=== PATIENT | male | born 1940 | race Caucasian/White ===

== ENCOUNTER → 2018-07-21 | Outpatient (CLI) | payer OTHER ==
[~2018-07-21] MED LIST: AREDS PO; CRAN1CAP10 PO; DOCU-116 PO; DOXY100T2 PO; FENO145T37 PO; FURO40TA5 PO; GLIM1TAB2 PO; JUICE PLUS GARDEN PO; JUICE PLUS VIT PO; LISI40TA4 PO; MEGA RED KRILL PO; PRESERVISION PO; PREVAGEN PO; TOPROL ER PO; WARF-57 PO; WARF7.5T49 PO
== END | disposition home or self-care (01) ==
LOC: SHCH 10:35
PROVIDERS: ATTEND Internal Medicine Cardiovascular Disease
DX: I34.0 Nonrheumatic mitral (valve) insufficiency (principal); I48.2 Chronic atrial fibrillation; I48.0 Paroxysmal atrial fibrillation
CPT/HCPCS: 93306

== ENCOUNTER → 2018-08-03 | Outpatient (CLI) | payer OTHER | END | disposition home or self-care (01) | LOC: SHCH 07:56 | PROVIDERS: ATTEND Internal Medicine Cardiovascular Disease | DX: I65.23 Occlusion and stenosis of bilateral carotid arteries (principal) | CPT/HCPCS: 93880 ==

== ENCOUNTER → 2020-11-04 | Outpatient (CLI) | payer OTHER ==
[~2020-11-04] MED LIST changes: +FENO145T26 PO; -FENO145T37 PO; +GLIM1TAB18 PO; -GLIM1TAB2 PO
== END | disposition home or self-care (01) ==
LOC: OIH 10:08
PROVIDERS: ATTEND Internal Medicine Cardiovascular Disease
DX: Z13.6 Encounter for screening for cardiovascular disorders (principal)
CPT/HCPCS: 75571

== ENCOUNTER 2020-11-13 12:57 | Inpatient (IN) | payer MEDICARE, OTHER ==
[~2020-11-13] VITALS: Ht 167.6 cm; Wt 106.4 kg
[~2020-11-13 12:57] MED LIST changes: -LISI40TA4 PO; +LISI40TA9 PO
[2020-11-13 13:27] LABS: BASOPHILS % (AUTO) 0.2 % (0.0-5.0); EOSINOPHILS % (AUTO) 0.1 % (0.0-8.0); HEMATOCRIT 38.1 % (42-54); LYMPHOCYTES % (AUTO) 5.9 % (21.0-51.0); MEAN CORPUSCULAR HEMOGLOBIN 29.7 pg (27.0-33.0); MEAN CORPUSCULAR VOLUME 92.7 fL (79-99); MONOCYTES % (AUTO) 10.7 % (3.0-13.0); NEUTROPHILS % (AUTO) 82.6 % (40.0-77.0); PLATELET COUNT (AUTO) 266 K/uL (130-400); RED BLOOD CELL COUNT(AUTO) 4.11 MIL/uL (4.50-6.20); RED CELL DISTRIBUTION WIDTH 13.1 % (11.0-15.5); WHITE BLOOD COUNT (AUTO) 20.3 K/uL (4.8-10.8)
[2020-11-13 13:37] LABS: INR 2.97 (0.85-1.15); PROTHROMBIN TIME 28.8 SEC (9.6-11.6)
[2020-11-13 13:39] LABS: PARTIAL THROMBOPLASTIN TIME 35.2 SEC (26.3-35.5)
[2020-11-13] MEDS ORDERED: CEFTRIAXONE 1G VIAL ONE (13:39)
[2020-11-13 13:41] LABS: CARBON DIOXIDE 23 mmol/L (21-32); CHLORIDE 98 mmol/L (101-111); CREATININE 1.9 mg/dL (0.5-1.5); GLOMERULAR FILTR. RATE CALC 36 mL/min (>60); GLUCOSE,RANDOM 282 mg/dL (70-105); POTASSIUM 5.3 mmol/L (3.5-5.1); SODIUM SERUM 135 mmol/L (136-145); UREA NITROGEN, BLOOD 46 mg/dL (7-18)
[2020-11-13 14:09] LABS: ALANINE AMINOTRANSFERASE 28 U/L (12-78); ALBUMIN 3.2 g/dL (3.5-5.0); ASPARTATE AMINOTRANSFERASE 20 U/L (10-37); BILIRUBIN,TOTAL 0.7 mg/dL (0.2-1.0); CREATINE KINASE, TOTAL 110 U/L (21-232); MYOGLOBIN 381 ng/mL (10-92); TOTAL PROTEIN, SERUM 7.6 g/dL (6.0-8.3); TROPONIN I < 0.04 ng/mL (0.00-0.06)
[2020-11-13 14:10] LABS: APPEARANCE,URINE SL CLOUDY (CLEAR); BILIRUBIN,URINE NEGATIVE (NEGATIVE); COLOR,URINE YELLOW (YELLOW); GLUCOSE, URINE (UA) NEGATIVE (NEGATIVE); KETONES,URINE NEGATIVE (NEGATIVE); LEUKOCYTE ESTERASE ,URINE LARGE (NEGATIVE); NITRATE,URINE NEGATIVE (NEGATIVE); OCCULT BLOOD,URINE SMALL (NEGATIVE); PH,URINE 6.5 (5.0-8.0); PROTEIN,URINE TRACE mg/dL (NEGATIVE); UROBILINOGEN,URINE 0.2 mg/dL (0.2-1.0)
[2020-11-13 14:28] LABS: BACTERIA,URINE Many /HPF (None Seen)
[2020-11-13 14:29] LABS: SQUAMOUS EPITHELIAL CELL,UR None Seen /HPF (0-2)
[2020-11-13] MEDS ORDERED: 0.9%NACL 1000ML 2,000 ML IV SCH (16:00)
[2020-11-13] MEDS ORDERED: ACETAMINOPHEN 325 MG TAB PO PRN (16:00)
[2020-11-13] MEDS ORDERED: ZOSYN 3.375GM+NS 50ML 50 ML IV ONE (16:25)
[2020-11-13] MEDS: ZOSYN 3.375GM+NS 50ML 50 ML IV SCH (21:00)
[2020-11-14 03:50] VITALS: BP 131/65
[2020-11-14] MEDS: 0.9%NACL 1000ML 1,000 ML IV SCH ×2 (06:02→12:22)
[2020-11-14] MEDS: ZOSYN 3.375GM+NS 50ML 50 ML IV SCH ×2 (06:02→12:22)
[2020-11-14 08:58] VITALS: BP 110/58
[2020-11-14 11:57] VITALS: BP 114/55
[2020-11-14 12:42] LABS: HEMATOCRIT 34.2 % (42-54); MEAN CORPUSCULAR HEMOGLOBIN 30.3 pg (27.0-33.0); MEAN CORPUSCULAR HGB CONC 32.5 g/dL (32.0-36.0); MEAN CORPUSCULAR VOLUME 93.4 fL (79-99); PLATELET COUNT (AUTO) 231 K/uL (130-400); RED BLOOD CELL COUNT(AUTO) 3.66 MIL/uL (4.50-6.20); RED CELL DISTRIBUTION WIDTH 13.3 % (11.0-15.5); WHITE BLOOD COUNT (AUTO) 23.4 K/uL (4.8-10.8)
[2020-11-14 14:00] LABS: BAND NEUTROPHILS % (MANUAL) 2 % (0-2); LYMPHOCYTES % (MANUAL) 2 % (22-44); MAN.DIFF COMMENT-IMPRESSION MANUAL DIFFERENTIAL; MONOCYTES % (MANUAL) 3 % (2-9); SEGMENTED NEUTROPHILS % 93 % (40-70)
[2020-11-14 14:02] LABS: PLATELET MORPHOLOGY COMMENT ADEQUATE
[2020-11-14] MEDS ORDERED: CHOL100040 PO (16:34)
[2020-11-14] MEDS ORDERED: WARF-57 PO (16:34)
[2020-11-14] MEDS ORDERED: METO-409 PO (16:34)
[2020-11-14] MEDS ORDERED: WARF2.5T85 PO (16:34)
[2020-11-14] MEDS ORDERED: ZINC50TA15 PO (16:34)
[2020-11-14] MEDS ORDERED: GLUC100019 PO (16:34)
[2020-11-14] MEDS: WARFARIN SODIUM 5 MG TAB PO SCH (17:00)
[2020-11-14] MEDS ORDERED: WARFARIN SODIUM 2.5 MG TAB PO SCH (17:00)
[2020-11-14 17:29] VITALS: BP 116/53
[2020-11-14] MEDS ORDERED: VANCOMYCIN PROTOCOL PER PHARMACY IV SCH (19:45)
[2020-11-14 19:53] VITALS: BP 97/48
[2020-11-14] MEDS ORDERED: VANCOMYCIN 1G 1.75 GM in 0.9% NACL 250ML 250 ML IV ONE (20:00)
[2020-11-14] MEDS ORDERED: COMPOUND IV REFRIGERATED 1 EACH IVSOLN MISC PRN (20:15)
[2020-11-14] MEDS ORDERED: NON-FORMULARY MEDICATION 1 EACH (Metoprolol Succinate 100 MG) PO SCH (21:00)
[2020-11-14] MEDS: LISINOPRIL 40 MG TABLET PO SCH (21:34)
[2020-11-14] MEDS: METOPROLOL SUCCINATE 50 MG TAB.SR.24H PO SCH (21:40)
[2020-11-14 23:56] VITALS: BP 94/51
[2020-11-15] MEDS: ZOSYN 3.375GM+NS 50ML 50 ML IV SCH ×2 (00:45→14:19)
[2020-11-15 04:00] VITALS: BP 97/51
[2020-11-15] MEDS: VANCOMYCIN 750MG + NS 250 ML IV SCH ×4 (06:18→20:08)
[2020-11-15 07:30] VITALS: BP 106/54
[2020-11-15] MEDS: METOPROLOL SUCCINATE 50 MG TAB.SR.24H PO SCH ×2 (09:00→21:00)
[2020-11-15] MEDS ORDERED: GLUCOSAMINE SULFATE 2000 MG PO SCH (09:00)
[2020-11-15] MEDS ORDERED: NON-FORMULARY MEDICATION 1 EACH (Cholecalciferol (Vitamin D3) (Vitamin D3) 25 MCG) PO SCH (09:00)
[2020-11-15] MEDS: GLUCOSAMINE SULFATE 2000 MG PO SCH (09:00)
[2020-11-15] MEDS ORDERED: ZINC GLUCONATE 50 MG PO SCH (09:00)
[2020-11-15] MEDS: Cholecalciferol (Vitamin D3) (Vitamin D3) 25 MCG PO SCH (09:00)
[2020-11-15] MEDS: FUROSEMIDE 40 MG TABLET PO SCH (10:16)
[2020-11-15 11:00] VITALS: BP 99/51
[2020-11-15 16:00] VITALS: BP 101/59
[2020-11-15] MEDS ORDERED: WARFARIN SODIUM 5 MG TAB PO SCH (16:00)
[2020-11-15 20:04] VITALS: BP 98/52
[2020-11-15] MEDS: WARFARIN SODIUM 5 MG TAB PO SCH (20:16)
[2020-11-15] MEDS: LISINOPRIL 40 MG TABLET PO SCH (21:00)
[2020-11-16 00:04] VITALS: BP 113/57
[2020-11-16] MEDS: 0.9%NACL 1000ML 1,000 ML IV SCH ×4 (00:52→17:12)
[2020-11-16] MEDS: ZOSYN 3.375GM+NS 50ML 50 ML IV SCH ×2 (00:52→16:45)
[2020-11-16 04:04] VITALS: BP 117/51
[2020-11-16 08:00] VITALS: BP 120/63
[2020-11-16] MEDS: Cholecalciferol (Vitamin D3) (Vitamin D3) 25 MCG PO SCH (09:00)
[2020-11-16] MEDS: GLUCOSAMINE SULFATE 2000 MG PO SCH (09:00)
[2020-11-16] MEDS: VANCOMYCIN 750MG + NS 250 ML IV SCH ×4 (09:01→16:48)
[2020-11-16 11:00] VITALS: BP 129/50
[2020-11-16 16:00] VITALS: BP 136/65
[2020-11-16] MEDS: METOPROLOL SUCCINATE 50 MG TAB.SR.24H PO SCH ×2 (16:35→22:11)
[2020-11-16] MEDS: FUROSEMIDE 40 MG TABLET PO SCH (16:35)
[2020-11-16] MEDS: WARFARIN SODIUM 5 MG TAB PO SCH (16:46)
[2020-11-16 20:04] VITALS: BP 127/72
[2020-11-16] MEDS: LISINOPRIL 40 MG TABLET PO SCH (22:11)
[2020-11-17 00:04] VITALS: BP 127/61
[2020-11-17] MEDS: ZOSYN 3.375GM+NS 50ML 50 ML IV SCH (00:58)
[2020-11-17 04:08] VITALS: BP 117/60
[2020-11-17] MEDS: 0.9%NACL 1000ML 1,000 ML IV SCH ×4 (05:26→21:25)
[2020-11-17 08:27] VITALS: BP 121/69
[2020-11-17] MEDS: GLUCOSAMINE SULFATE 2000 MG PO SCH (09:00)
[2020-11-17] MEDS: Cholecalciferol (Vitamin D3) (Vitamin D3) 25 MCG PO SCH (09:00)
[2020-11-17] MEDS: FUROSEMIDE 40 MG TABLET PO SCH (11:17)
[2020-11-17] MEDS: METOPROLOL SUCCINATE 50 MG TAB.SR.24H PO SCH ×2 (11:18→21:25)
[2020-11-17 11:31] VITALS: BP 119/63
[2020-11-17] MEDS ORDERED: LEVOFLOXACIN 500 MG TABLET PO SCH (15:00)
[2020-11-17 16:00] VITALS: BP 120/62
[2020-11-17] MEDS ORDERED: LEVOFLOXACIN 500 MG TABLET PO ONE (16:00)
[2020-11-17] MEDS: WARFARIN SODIUM 5 MG TAB PO SCH (16:02)
[2020-11-17 20:04] VITALS: BP 120/61
[2020-11-17] MEDS: LISINOPRIL 40 MG TABLET PO SCH (21:25)
[2020-11-18 00:04] VITALS: BP 117/61
[2020-11-18] MEDS: 0.9%NACL 1000ML 1,000 ML IV SCH ×2 (04:06→14:26)
[2020-11-18 04:08] VITALS: BP 124/63
[2020-11-18 08:04] VITALS: BP 113/63
[2020-11-18] MEDS: METOPROLOL SUCCINATE 50 MG TAB.SR.24H PO SCH ×2 (09:00→20:52)
[2020-11-18] MEDS: FUROSEMIDE 40 MG TABLET PO SCH (09:00)
[2020-11-18] MEDS: GLUCOSAMINE SULFATE 2000 MG PO SCH (09:00)
[2020-11-18] MEDS: Cholecalciferol (Vitamin D3) (Vitamin D3) 25 MCG PO SCH (09:00)
[2020-11-18 12:54] LABS: HEMATOCRIT 26.8 % (42-54); MEAN CORPUSCULAR HEMOGLOBIN 30.2 pg (27.0-33.0); MEAN CORPUSCULAR HGB CONC 32.8 g/dL (32.0-36.0); MEAN CORPUSCULAR VOLUME 92.1 fL (79-99); PLATELET COUNT (AUTO) 182 K/uL (130-400); RED BLOOD CELL COUNT(AUTO) 2.91 MIL/uL (4.50-6.20); RED CELL DISTRIBUTION WIDTH 13.1 % (11.0-15.5); WHITE BLOOD COUNT (AUTO) 7.8 K/uL (4.8-10.8)
[2020-11-18 13:18] LABS: EOSINOPHILS % (MANUAL) 1 % (1-6); LYMPHOCYTES % (MANUAL) 6 % (22-44); MAN.DIFF COMMENT-IMPRESSION MANUAL DIFFERENTIAL; MONOCYTES % (MANUAL) 6 % (2-9); SEGMENTED NEUTROPHILS % 87 % (40-70)
[2020-11-18 13:19] LABS: PLATELET MORPHOLOGY COMMENT ADEQUATE
[2020-11-18 13:32] VITALS: BP 115/61
[2020-11-18] MEDS ORDERED: LEVOFLOXACIN 500 MG TABLET PO SCH (15:00)
[2020-11-18] MEDS: WARFARIN SODIUM 5 MG TAB PO SCH (16:00)
[2020-11-18 16:25] VITALS: BP 115/59
[2020-11-18 20:00] VITALS: BP 123/55
[2020-11-18] MEDS: LISINOPRIL 40 MG TABLET PO SCH (20:52)
[2020-11-19] VITALS: BP 116/59
[2020-11-19] MEDS: 0.9%NACL 1000ML 1,000 ML IV SCH (02:12)
[2020-11-19 04:00] VITALS: BP 126/63
[2020-11-19 08:22] VITALS: BP 115/68
[2020-11-19] MEDS: GLUCOSAMINE SULFATE 2000 MG PO SCH (09:00)
[2020-11-19] MEDS: Cholecalciferol (Vitamin D3) (Vitamin D3) 25 MCG PO SCH (09:00)
[2020-11-19] MEDS: FUROSEMIDE 40 MG TABLET PO SCH (10:09)
[2020-11-19] MEDS: METOPROLOL SUCCINATE 50 MG TAB.SR.24H PO SCH (10:09)
[2020-11-19 11:55] VITALS: BP 129/64
== END 2020-11-19 15:20 | disposition home or self-care (01) | DRG 872 ==
LOC: EDH 12:57 → EDHIP 15:30 → 3BH 19:30 → EDHIP 23:19 → 3BH 11-14 02:15
PROVIDERS: ADMIT Internal Medicine Hematology & Oncology; ATTEND Internal Medicine Hematology & Oncology
DX: A41.9 Sepsis, unspecified organism (principal); N39.0 Urinary tract infection, site not specified; C67.9 Malignant neoplasm of bladder, unspecified; I25.10 Atherosclerotic heart disease of native coronary artery without angina pectoris; I11.9 Hypertensive heart disease without heart failure; Z20.822 Contact with and (suspected) exposure to COVID-19; R53.81 Other malaise; Z92.3 Personal history of irradiation; Z92.21 Personal history of antineoplastic chemotherapy; Z82.49 Family history of ischemic heart disease and other diseases of the circulatory system
CPT/HCPCS: 36415; 70450; 71045; 72125; 80053; 80202; 81001; 82550; 83605; 83874; 84145; 84484; 85025; 85610; 85730; 86140; 86900; 86901; 87040; 87077; 87088; 87186; 87426; 93005; 97039; G0378; J0696; J2543; J3370; J7030; J7050; U0003

== ENCOUNTER → 2020-11-27 | Outpatient (CLI) | payer MEDICARE, OTHER ==
[~2020-11-27] MED LIST changes: -AREDS PO; +CHOL100040 PO; -CRAN1CAP10 PO; -DOCU-116 PO; -DOXY100T2 PO; -FENO145T26 PO; +GLUC100019 PO; -JUICE PLUS GARDEN PO; -JUICE PLUS VIT PO; +LISI40TA4 PO; -LISI40TA9 PO; -MEGA RED KRILL PO; +METO-409 PO; -PRESERVISION PO; -PREVAGEN PO; -TOPROL ER PO; +WARF2.5T85 PO; -WARF7.5T49 PO; +ZINC50TA15 PO
== END | disposition home or self-care (01) ==
LOC: SHCH 07:42
PROVIDERS: ATTEND Internal Medicine Cardiovascular Disease
DX: I65.23 Occlusion and stenosis of bilateral carotid arteries (principal); I10 Essential (primary) hypertension
CPT/HCPCS: 93306; 93356; 93880

== ENCOUNTER 2021-12-29 08:48 | Day surgery (SDC) | payer MEDICARE ==
[2021-12-25 10:14] LABS: BASOPHILS % (AUTO) 1.2 % (0.0-5.0); EOSINOPHILS % (AUTO) 3.8 % (0.0-8.0); HEMATOCRIT 42.2 % (42-54); LYMPHOCYTES % (AUTO) 19.6 % (21.0-51.0); MEAN CORPUSCULAR HEMOGLOBIN 29.9 pg (27.0-33.0); MEAN CORPUSCULAR HGB CONC 32.7 g/dL (32.0-36.0); MEAN CORPUSCULAR VOLUME 91.3 fL (79-99); MONOCYTES % (AUTO) 10.9 % (3.0-13.0); NEUTROPHILS % (AUTO) 64.3 % (40.0-77.0); PLATELET COUNT (AUTO) 226 K/uL (130-400); RED BLOOD CELL COUNT(AUTO) 4.62 MIL/uL (4.50-6.20); RED CELL DISTRIBUTION WIDTH 12.8 % (11.0-15.5); WHITE BLOOD COUNT (AUTO) 5.9 K/uL (4.8-10.8)
[2021-12-25 10:15] LABS: APPEARANCE,URINE CLEAR (CLEAR); BILIRUBIN,URINE NEGATIVE (NEGATIVE); COLOR,URINE YELLOW (YELLOW); GLUCOSE, URINE (UA) 250 mg/dL (NEGATIVE); KETONES,URINE NEGATIVE (NEGATIVE); LEUKOCYTE ESTERASE ,URINE NEGATIVE (NEGATIVE); NITRATE,URINE NEGATIVE (NEGATIVE); OCCULT BLOOD,URINE NEGATIVE (NEGATIVE); PROTEIN,URINE NEGATIVE (NEGATIVE); UROBILINOGEN,URINE 0.2 mg/dL (0.2-1.0)
[2021-12-25 10:23] LABS: CREATININE 1.5 mg/dL (0.5-1.5); POTASSIUM 4.4 mmol/L (3.5-5.1)
[2021-12-25 10:27] LABS: BACTERIA,URINE Rare /HPF (None Seen); RBC,URINE 0-1 /HPF (0-1); SQUAMOUS EPITHELIAL CELL,UR Rare /HPF (0-2)
[2021-12-25 10:35] LABS: INR 2.33 (0.85-1.15); PROTHROMBIN TIME 23.5 SEC (9.6-11.6)
[2021-12-25 10:37] LABS: PARTIAL THROMBOPLASTIN TIME 45.2 SEC (26.3-35.5)
[~2021-12-29] VITALS: Ht 190.5 cm; Wt 99.0 kg
[2021-12-29] VITALS (9 sets, daily range): BP systolic 118–134; BP diastolic 67–77
[~2021-12-29 08:48] MED LIST changes: +0.9%NACL 1000ML 1,000 ML IV SCH; +ASCO100031 PO; -CHOL100040 PO; +CHOL500051 PO; -GLIM1TAB18 PO; -GLUC100019 PO; -LISI40TA4 PO; +METF-444 PO; +TEMA30CA PO; -WARF2.5T85 PO; -ZINC50TA15 PO; +[UNRECOGNIZED DRUG - OTHER] PO
[2021-12-29 09:28] LABS: INR 1.17 (0.85-1.15); PROTHROMBIN TIME 12.6 SEC (9.6-11.6)
[2021-12-29 09:30] LABS: PARTIAL THROMBOPLASTIN TIME 31.6 SEC (26.3-35.5)
[2021-12-29] MEDS ORDERED: NICARDIPINE 25MG INJ IV ONE (09:55)
[2021-12-29] MEDS ORDERED: MIDAZOLAM HCL 1 MG/ML 2ML VIAL ONE (09:55)
[2021-12-29] MEDS ORDERED: NITROGLYCERIN 50MG VIAL ONE (09:55)
[2021-12-29] MEDS ORDERED: IOHEXOL 350 MG/ML 100ML INFUS..BTL IV ONE (09:55)
[2021-12-29] MEDS ORDERED: MEPERIDINE-PF 25 MG/ML SYG ONE (09:55)
[2021-12-29] MEDS ORDERED: LIDOCAINE HCL 400MG/20ML VIAL ONE (09:55)
[2021-12-29] MEDS ORDERED: HEPARIN 10,000 UNIT/10ML (1,000 UNIT/ML) VIAL ONE (09:55)
[2021-12-29] MEDS ORDERED: SODIUM BICARB 50MEQ 50ML VIAL 50 ML ONE (09:58)
[2021-12-29] MEDS ORDERED: IOHEXOL-350 50ML VIAL IV ONE (10:42)
[2021-12-29] MEDS ORDERED: DEXTROSE 50%-WATER 50 ML DISP.SYRIN IV PRN (11:00)
[2021-12-29] MEDS ORDERED: 0.9%NACL 1000ML 1,000 ML IV SCH (11:00)
[2021-12-29] MEDS ORDERED: INSULIN HUMULIN R 100 UNIT/ML 3ML SQ SCH (11:30)
== END 2021-12-29 15:10 | disposition home or self-care (01) ==
LOC: DAH 08:48
PROVIDERS: ATTEND Internal Medicine Cardiovascular Disease
DX: I25.10 Atherosclerotic heart disease of native coronary artery without angina pectoris (principal); E11.9 Type 2 diabetes mellitus without complications; I51.9 Heart disease, unspecified; Z85.51 Personal history of malignant neoplasm of bladder; I48.91 Unspecified atrial fibrillation; Z95.810 Presence of automatic (implantable) cardiac defibrillator; Z88.1 Allergy status to other antibiotic agents; Z79.01 Long term (current) use of anticoagulants; Z79.899 Other long term (current) drug therapy
CPT/HCPCS: 36415 ×2; 71045; 80048; 81001; 82948 ×2; 85025; 85610 ×2; 85730 ×2; 93005; 93458; A4215; A4216; A4221; A4222; A4223 ×3; A4606; A4663; C1760; C1894; J1644; J2175; J2250; J3490 ×4; J7030; Q9965; Q9967 ×2; 96360; 96361; 99156; 99157

== ENCOUNTER 2022-02-04 11:23 | Observation (INO) | payer MEDICARE ==
[~2022-02-04] VITALS: Ht 193 cm; Wt 98.9 kg
[~2022-02-04 11:23] MED LIST changes: -0.9%NACL 1000ML 1,000 ML IV SCH
[2022-02-04 12:00] LABS: BASOPHILS % (AUTO) 0.9 % (0.0-5.0); EOSINOPHILS % (AUTO) 4.3 % (0.0-8.0); HEMATOCRIT 38.8 % (42-54); LYMPHOCYTES % (AUTO) 23.9 % (21.0-51.0); MEAN CORPUSCULAR HEMOGLOBIN 29.2 pg (27.0-33.0); MEAN CORPUSCULAR HGB CONC 32.7 g/dL (32.0-36.0); MEAN CORPUSCULAR VOLUME 89.2 fL (79-99); MONOCYTES % (AUTO) 11.3 % (3.0-13.0); NEUTROPHILS % (AUTO) 59.4 % (40.0-77.0); PLATELET COUNT (AUTO) 186 K/uL (130-400); RED BLOOD CELL COUNT(AUTO) 4.35 MIL/uL (4.50-6.20); RED CELL DISTRIBUTION WIDTH 13.4 % (11.0-15.5); WHITE BLOOD COUNT (AUTO) 5.3 K/uL (4.8-10.8)
[2022-02-04 12:09] LABS: CREATININE 1.3 mg/dL (0.5-1.5); POTASSIUM 3.8 mmol/L (3.5-5.1)
[2022-02-04 12:14] LABS: ALBUMIN 3.4 g/dL (3.5-5.0); BILIRUBIN,TOTAL 0.3 mg/dL (0.2-1.0); TOTAL PROTEIN, SERUM 6.8 g/dL (6.0-8.3)
[2022-02-04] MEDS ORDERED: 0.9%NACL 1000ML 1,000 ML IV ONE (12:30)
[2022-02-04] MEDS ORDERED: IOHEXOL 350 MG/ML 100ML INFUS..BTL IV ONE (12:35)
[2022-02-04 13:43] LABS: APPEARANCE,URINE Clear (CLEAR); BILIRUBIN,URINE Negative (NEGATIVE); COLOR,URINE Yellow (YELLOW); GLUCOSE, URINE (UA) Negative (NEGATIVE); KETONES,URINE Negative (NEGATIVE); LEUKOCYTE ESTERASE ,URINE Negative (NEGATIVE); NITRATE,URINE Negative (NEGATIVE); OCCULT BLOOD,URINE Negative (NEGATIVE); PH,URINE 6.5 (5.0-8.0); PROTEIN,URINE Negative (NEGATIVE); UROBILINOGEN,URINE 0.2 mg/dL (0.2-1.0)
[2022-02-04] MEDS ORDERED: 0.9%NACL 1000ML 1,000 ML IV SCH (15:00)
[2022-02-04 15:28] LABS: INR 2.32 (0.85-1.15); PROTHROMBIN TIME 23.4 SEC (9.6-11.6)
[2022-02-04] MEDS: ASPIRIN 81 MG EC TAB PO SCH (15:28)
[2022-02-04 15:30] LABS: PARTIAL THROMBOPLASTIN TIME 44.5 SEC (26.3-35.5)
[2022-02-04] MEDS ORDERED: WARF2.5T85 PO (16:39)
[2022-02-04 18:29] VITALS: BP 125/66
[2022-02-04] MEDS ORDERED: DEXTROSE 50%-WATER 50 ML DISP.SYRIN IV PRN (22:30)
[2022-02-04] MEDS ORDERED: WARFARIN SODIUM 2.5 MG TAB PO SCH (22:30)
[2022-02-04] MEDS ORDERED: GLUCAGON 1MG KIT 1 MG ML IM PRN (22:30)
[2022-02-04] MEDS ORDERED: PHARMACY COMMUNICATION MISC SCH (23:00)
[2022-02-04 23:10] VITALS: BP 127/77
[2022-02-05 04:19] VITALS: BP 122/66
[2022-02-05] MEDS: INSULIN HUMULIN R 100 UNIT/ML 3ML SQ SCH ×2 (06:09→12:56)
[2022-02-05 07:28] VITALS: BP 138/77
[2022-02-05] MEDS: ASPIRIN 81 MG EC TAB PO SCH (08:46)
[2022-02-05] MEDS ORDERED: FUROSEMIDE 40 MG TABLET PO SCH (09:00)
[2022-02-05] MEDS ORDERED: WARFARIN SODIUM 5 MG TAB PO SCH (09:00)
[2022-02-05] MEDS ORDERED: METFORMIN HCL 500 MG TABLET PO SCH (09:00)
[2022-02-05 11:40] VITALS: BP_SYST 127; BP_SYST 147; BP_DIAS 70; BP_DIAS 74
[2022-02-05] MEDS ORDERED: PHARMACY COMMUNICATION MISC SCH (13:00)
[2022-02-05] MEDS ORDERED: METOPROLOL SUCCINATE 50 MG TAB.SR.24H PO SCH (21:00)
[2022-02-05] MEDS ORDERED: TEMAZEPAM 30 MG CAP PO SCH (21:00)
== END 2022-02-05 14:38 | disposition home or self-care (01) ==
LOC: EDH 11:23 → EDHIP 14:37 → 3BH 18:09
PROVIDERS: ADMIT Internal Medicine Hematology & Oncology; ATTEND Internal Medicine Hematology & Oncology
DX: G45.9 Transient cerebral ischemic attack, unspecified (principal); I63.9 Cerebral infarction, unspecified; I25.10 Atherosclerotic heart disease of native coronary artery without angina pectoris; Z95.0 Presence of cardiac pacemaker; E11.9 Type 2 diabetes mellitus without complications; Z85.51 Personal history of malignant neoplasm of bladder; Z79.01 Long term (current) use of anticoagulants; Z79.899 Other long term (current) drug therapy
CPT/HCPCS: 36415; 70450; 70496; 70498; 80053; 81003; 82140; 82948 ×2; 84484; 85025; 85610; 85730; 93005; 96360; 99291; G0378 ×24; J1815; J7030; Q9967

== ENCOUNTER → 2023-09-01 | Outpatient (CLI) | payer MEDICARE ==
[~2023-09-01] MED LIST changes: -ASCO100031 PO; -CHOL500051 PO; +WARF2.5T85 PO; -[UNRECOGNIZED DRUG - OTHER] PO
[2023-09-01 17:00] LABS: ALBUMIN 3.5 g/dL (3.5-5.0); BILIRUBIN,TOTAL 0.5 mg/dL (0.2-1.0); MAGNESIUM 1.6 mg/dL (1.80-2.40); POTASSIUM 4.3 mmol/L (3.5-5.1); TOTAL PROTEIN, SERUM 7.4 g/dL (6.0-8.3)
== END | disposition home or self-care (01) ==
LOC: LAB 14:48
PROVIDERS: ATTEND Internal Medicine Cardiovascular Disease
DX: I48.0 Paroxysmal atrial fibrillation (principal)
CPT/HCPCS: 36415; 80053; 83735; 83880

== ENCOUNTER 2025-05-30 11:26 | Observation (INO) | payer MEDICARE ==
[~2025-05-30] VITALS: Ht 193 cm; Wt 85.5 kg
--- NOTE | 2025-05-30 11:52 | ERN ---
General Chief Complaint: Hypotension Stated Complaint: HYPOTENSION Time Seen by MD: 11:27 History of Present Illness Initial Comments Mr. Brooks is an 85-year-old male patient, brought in by EMS with hypotension from [facility]. Patient had a scheduled appointment for dizziness/near syncope and medication review. He was found to have a blood pressure consistently in the low 80s systolic. Patient has a past medical history of hypertension, AFib on warfarin, biventricular AICD, CAD, anemia, bladder cancer. Patient has been having multiple episodes of syncope over the last 3 months. His visit to transplant surgeon in March for these symptoms was advised to decrease metoprolol dose to 50 mg BID a day but the patient did not make the adjustment had multiple episodes of passing out. Pt suffered multiple falls and the most recent one was a week ago. He has bruising above the left eye and on the nose. Patient denies headache, changes in vision, fevers, cough, congestion, or chest pain. He reports multiple recent episodes of dizziness. He had a fall a few days ago. Patient is pending generator exchange for his pacemaker. Allergies: Coded Allergies: niacin (Verified Allergy, Unknown, ITCHING, 11/09/16) Home Meds Reported Medications Sacubitril/Valsartan (Entresto 24 mg-26 mg Tablet) 24 Mg-26 Mg Tablet, 1 TAB PO BID for 30 Days, #60 TAB 0 Refills 05/30/25 Vitamin B Complex (B Complex) 1 Cap Capsule, 1 CAP PO DAILY for 30 Days, #30 CAP 0 Refills 05/30/25 Metformin HCl (Metformin HCl) 1,000 Mg Tablet, 1 TAB PO BID for 30 Days, #60 TAB 0 Refills 05/30/25 Warfarin Sodium (Warfarin Sodium) 2.5 Mg Tablet, 2.5 MG PO AD, TAB 02/04/22 Metoprolol Succinate (Metoprolol Succinate) 100 Mg Tab.er.24h, 100 MG PO HS, TAB 12/26/21 Warfarin Sodium (Warfarin Sodium) 5 Mg Tablet, 5 MG PO DAILY, TAB 12/26/21 Temazepam (Temazepam) 30 Mg Capsule, 30 MG PO HS, CAP 12/26/21 Furosemide (Furosemide) 40 Mg Tablet, 40 MG PO DAILY, TAB 11/07/14 Discontinued Reported Medications Metformin HCl (Metformin HCl) 500 Mg Tablet, 500 MG PO BID, TAB 12/26/21 Past Medical History Past Medical History: A-Fib, Anemia, CAD, Cancer, Diabetes-Type II, Hypertension Medical History Other: BLADDER CA DEFIB PACEMAKER Past Surgical History: Pacer/AICD Social History Social History: Other ROS Dictation CONSTITUTIONAL: No chills, no fever, no weakness, no diaphoresis, no malaise. HEAD/FACE: A bruise above the left eyebrow and bridge of the nose. EENT: No eye pain, no blurred vision, no tearing, no double vision, no ear pain, no ear discharge, no nose pain, no nasal congestion, no throat pain, no throat swelling, no mouth pain. RESPIRATORY: No cough, no SOB, no orthopnea, no PND, no wheezing. CARDIOVASCULAR: No chest pain, no edema, no palpitations, syncope. GASTROINTESTINAL/ABDOMINAL: No abdominal pain, no constipation, no diarrhea, no nausea, no vomiting. GENITOURINARY: No abnormal discharge, no dysuria, no frequent urination, no hematuria. No complaints of pain in the genitals. MUSCULOSKELETAL: No back pain, no gout, no joint pain, no joint swelling, no muscle pain, no muscle stiffness, no neck pain. INTEGUMENTARY: No change in color, no change in hair/nails, no dryness, no lesion, no lumps, no rash. NEUROLOGICAL/PSYCH: No anxiety, not depressed, no emotional problem, no headache, no numbness, no pre-existing deficit, no history of seizures, no tremors, no weakness. HEMATOLOGIC/LYMPHATIC: Anemic, no history of blood clots, no apparent bleeding, no bruising, glands not swollen. All Systems Negative, Except as Noted. Physical Exam Physical Exam Dictation VITAL SIGNS: Reviewed. GENERAL APPEARANCE: Alert, oriented x3 HEAD AND FACE: Non-traumatic. EYES: PERRL, pink conjunctivas, eyelid no trauma, anterior chamber clear. EARS: Pinnas intact and no signs of trauma or erythema. Ear canals clear and no discharge. TMs no erythema. NOSE: No discharge, no bleeding. OROPHARYNX: Mouth normal, teeth no caries, tongue pink. Pharynx clear, no erythema. Tonsils no exudates, no abscesses noted. Mucous membrane moist. NECK: Supple, non-tender, no thyromegaly, no masses, no JVD, no bruits. BREAST: Deferred. CHEST: No tenderness, no crepitus, no paradoxical movement, no retractions. LUNGS: Clear, well-ventilated, symmetric, no rales, no wheezing, no rhonchi, no stridor, good breath sounds bilaterally. HEART: Regular rate, regular rhythm, no murmur, no gallops. VASCULAR: No peripheral edema. ABDOMEN: Soft, positive bowel sounds, nondistended, no guarding, nontender, no rebound, no masses no hepatomegaly, no splenomegaly, no Newman's sign, no hernias. RECTAL: Deferred. GENITAL: Deferred. NEUROLOGICAL: Normal speech, gross motor function intact, gross sensory function intact. MUSCULOSKELETAL: Neck nontender, full range of motion, back nontender, full range of motion. EXTREMITIES: Nontender, full range of motion. SKIN: Color pink, dry, no turgor, no rash, no lacerations, bruise above the left eye and on nose, no contusions. LYMPHATICS: Deferred. Results Laboratory and Microbiology Lab and Micro Result Laboratory Tests Test 05/30/25 11:54 White Blood Count 7.7 K/uL (4.8-10.8) Red Blood Count 3.18 MIL/uL (4.50-6.20) L Hemoglobin 9.3 g/dL (14.0-18.0) L Hematocrit 28.5 % (42-54) L Mean Corpuscular Volume 89.6 fL (79-99) Mean Corpuscular Hemoglobin 29.2 pg (27.0-33.0) Mean Corpuscular Hemoglobin Concent 32.6 g/dL (32.0-36.0) Red Cell Distribution Width 15.0 % (11.0-15.5) Platelet Count 291 K/uL (130-400) Mean Platelet Volume 9.8 fL (7.5-10.5) Immature Granulocyte % (Auto) 0.3 % (0-1) Neutrophils (%) (Auto) 66.0 % (40.0-77.0) Lymphocytes (%) (Auto) 19.4 % (21.0-51.0) L Monocytes (%) (Auto) 12.1 % (3.0-13.0) Eosinophils (%) (Auto) 1.6 % (0.0-8.0) Basophils (%) (Auto) 0.6 % (0.0-5.0) Neutrophils # (Auto) 5.1 K/uL (1.8-7.7) Lymphocytes # (Auto) 1.5 K/uL (1.0-4.8) Monocytes # (Auto) 0.9 K/uL (0.1-1.0) Eosinophils # (Auto) 0.12 K/uL (0.00-0.70) Basophils # (Auto) 0.05 K/uL (0.00-0.20) Absolute Immature Granulocyte (auto 0.02 K/uL (0-1) Nucleated Red Blood Cells 0.0 % (0.0-0.19) Sodium Level 137 mmol/L (136-145) Potassium Level 5.4 mmol/L (3.5-5.1) H Chloride Level 104 mmol/L (101-111) Carbon Dioxide Level 23 mmol/L (21-32) Blood Urea Nitrogen 71 mg/dL (7-18) H Creatinine 1.9 mg/dL (0.5-1.3) H Glomerular Filtration Rate Calc 34 mL/min (>90) Random Glucose 107 mg/dL (70-105) H Lactic Acid Level 3.0 mmol/L (0.8-2.5) H Total Calcium 8.7 mg/dL (8.5-10.1) Total Creatine Kinase 41 U/L (21-232) # Troponin I High Sensitivity 10 ng/L (4-75) MDM Chief complaint: Patient had hypotension on admission with frequent syncopal episodes in the past months with a fall one week ago. Pt was advised to reduce Metoprolol dosage to 50mg BID however he has been taking 100 mg BID. Past medical history: Afib with AICD, HTN, DM, CHF, CKD, Bladder cancer, and anemia. Vitals: Patient hypotensive on admission, 80s/40s. Subsequently improved to 109/70 with fluids. Review of systems: Mostly unremarkable except for her bruises about the left eye us from fall a week ago. Physical Exam: Mostly unremarkable Labs: Labs are consistent with anemia hemoglobin 9.3, BUN 71, creatinine 1.9, lactic acid 3, hyperkalemia 5.4. Imaging: CT brain showed no intracranial hemorrhages. Stable chronic ischemic changes. Chest X-ray is normal. Differential diagnosis: Transient hypotension, dehydration, anemia, lactic acidosis. Assessment and Plan: Patient was hypotensive POA, given 2 litres of IV fluids, pressures climbed up to 109/70mmhg. Patient has taken Metoprolol 100 mg this morning. Pt will be admitted for observation and management of hypotension causing recurrent falls, lactic acidosis, and dehydration. ATTENDING MDM CC: dizziness, near syncope, orthostasis Historian: Patient Comorbidities: AFib, anemia, CAD, history of bladder cancer, diabetes, hypertension Limitations by social determinants of health: None Differential diagnosis: Transient hypotension, medication side effect, dehydration, sepsis, obstructive pathology, distributed pathology EKG (independently ordered and interpreted by me): Atrial fibrillation, rate of 84, ventricular paced rhythm, no STEMI. Vital signs: Initially blood pressure 81/41, other vital signs stable. After fluid resuscitation, blood pressure improved to 106/57. Oxygen saturation stable. Labs (independently ordered and interpreted by me): Hemoglobin 9.3, no leuko cytosis, no shift, no bands. Chemistry shows potassium 5.4 otherwise stable electrolytes. Creatinine 1.9 BUN is 71, appears to be an LES on CKD. Lactic acid 3.0. Troponin stable. Repeat lactic acid 1.2, improving. Urinalysis does show nitrites leuk esterase. Treatment in ED: 2 L normal saline, 1 g of Rocephin. Patient does have lactic acidosis hypotension and possible UTI, treated a sepsis. Received 2 L of fluids and IV antibiotics. On sepsis focused re- evaluation after the fluid resuscitation, patient has stable perfusion and stable vital signs. Symptoms may also be due to dehydration since she does have a mild LES with the an elevated BUN to creatinine ratio. We will admit for further treatment and observation. Blood cultures drawn in the ER. Consultation: Dr. Valverde for admission. ED Course Orders Procedure Category Date Status Time Cbc With Differential LAB 05/30/25 Complete 11:47 Urinalysis Profile LAB 05/30/25 Complete 11:47 0.9%Nacl 1000ml (Ns PHA 05/30/25 Complete 1000ml) 12:00 Creatine Kinase, Total LAB 05/30/25 Complete 11:47 Troponin I High LAB 05/30/25 Complete Sensitivity 11:47 Lactic Acid LAB 05/30/25 Complete 11:47 Basic Metabolic Panel LAB 05/30/25 Complete 11:47 12 Lead Ekg Tracing- EKG 05/30/25 Complete Technical 11:47 Ct Head/Brain W/O CT 05/30/25 Resulted Contrast 11:47 Chest 1vw RAD 05/30/25 Resulted 11:47 Blood Cult LULI 05/30/25 In Process 11:52 0.9%Nacl 1000ml (Ns PHA 05/30/25 Complete 1000ml) 12:30 Ceftriaxone 1g Vial PHA 05/30/25 Complete (Rocephine 1g Inj) 14:00 Current Medications Medications (Trade) Dose Ordered Sig/Celina Route PRN Reason Start Time Stop Time Status Last Admin Dose Admin Ceftriaxone Sodium (ROCEphine 1G INJ) 1 gm ONCE ONCE IVPB 05/30/25 14:00 05/30/25 14:02 DC 05/30/25 14:28 Sodium Chloride 1,000 ml @ 150 mls/hr Q6H40M ONCE IV 05/30/25 12:30 05/30/25 19:09 DC 05/30/25 12:29 Sodium Chloride 2,586 ml @ 862 mls/hr ONCE ONCE IV 05/30/25 12:00 05/30/25 12:28 DC Vital Signs Date Time Temp Pulse Resp B/P (MAP) Pulse Ox O2 Delivery O2 Flow Rate FiO2 05/30/25 13:58 80 16 100/45 95 Room Air* 0 21 05/30/25 11:57 84 17 109/70 95 Room Air* 0 21 05/30/25 11:30 97.7 80 18 81/41 96 Room Air 0 DX & DISP Disposition: Inpatient Departure Impression: Primary Impression: Sepsis Additional Impressions: Transient hypotension, Dehydration, LES (acute kidney injury) Critical Time: 30 minutes (Critical Care Procedure NoteAuthorized and Performed by: meTotal critical care time: Approximately 36 minutesDue to a high probability of clinically significant, life threatening deterioration, the patient required my highest level of preparedness to intervene emergently and I personally spent this critical care time directly and personally managing the patient. This critical care time included obtaining a history; examining the patient; pulse oximetry; ordering and review of studies; arranging urgent treatment with development of a management plan; evaluation of patient's response to treatment; frequent reassessment; and, discussions with other providers.This critical care time was performed to assess and manage the high probability of imminent, life-threatening deterioration that could result in multi-organ failure. It was exclusive of separately billable procedures and treating other patients and teaching time.Please see MDM section and the rest of the note for further information on patient assessment and treatment.) Condition: Stable Referrals: ELAINE VALVERDE MD (PCP) I performed a substantive portion of the visit. I have reviewed and personally made and approve the management plan that is documented in the notes by myself with SOCORRO/resident. I acknowledged full responsibility for the patient's management plan. JULES ABURTO MD May 30, 2025 11:52 FELICIA FINE DO May 31, 2025 08:08
--- NOTE | 2025-05-30 11:58 | EKG ---
[facility] Test Date: 2025-05-30 Test Time: 11:54:01 Pat Name: ANDREINA NUNEZ Department: [facility] Room: 431 Gender: M Ophthalmologist: [id number] : 1940 Requested By: JULES ABURTO Order Number: [id number] Reading MD: Tushar Mcdowell Measurements Intervals [place] Rate: 84 P: 0 NM: 0 QRS: -4 QRSD: 137 T: 158 QT: 436 QTc: 515 Interpretive Statements Afib/flut and V-paced complexes Nonspecific intraventricular conduction delay Nonspecific repol abnormality, lateral leads Compared to ECG 02/04/2022 11:21:41 Intraventricular conduction delay now present Early repolarization now present Electronically Signed On 06-03-2025 10:36:18 CDT by Tushar Mcdowell Please click the below link to view image of tracing.
[2025-05-30] MEDS ORDERED: 0.9%NACL 1000ML 2,586 ML IV ONE (12:00)
[2025-05-30 12:09] LABS: IMMATURE GRANULOCYTE ABSOLUTE 0.02 K/uL (0-1); NUCLEATED RED BLOOD CELLS 0.0 % (0.0-0.19); PLATELET COUNT (AUTO) 291 K/uL (130-400); RED BLOOD CELL COUNT(AUTO) 3.18 MIL/uL (4.50-6.20); RED CELL DISTRIBUTION WIDTH 15.0 % (11.0-15.5); WHITE BLOOD COUNT (AUTO) 7.7 K/uL (4.8-10.8)
[2025-05-30 12:21] LABS: CREATININE 1.9 mg/dL (0.5-1.3); GLOMERULAR FILTR. RATE CALC 34.0 mL/min (>90); GLUCOSE,RANDOM 107.0 mg/dL (70-105); SODIUM SERUM 137.0 mmol/L (136-145); UREA NITROGEN, BLOOD 71.0 mg/dL (7-18)
[2025-05-30 12:26] LABS: CREATINE KINASE, TOTAL 41.0 U/L (21-232)
[2025-05-30] MEDS: 0.9%NACL 1000ML 1,000 ML IV ONE (12:29)
--- NOTE | 2025-05-30 13:05 | HMCIMG ---
EXAM: CR Chest, 2 View. CLINICAL HISTORY: Hypotension COMPARISON: Radiograph dated December 25, 2021 FINDINGS: Right Mediport catheter tip projects over the SVC. Lungs are clear. No pleural effusion or pneumothorax. AICD leads are unchanged in positions. Heart size is stable. Pulmonary vessels are within normal limits. IMPRESSION: 1. No acute cardiopulmonary findings. /[place]
--- NOTE | 2025-05-30 13:30 | HMCIMG ---
EXAM: CT Head Without IV contrast. CLINICAL HISTORY: Fall on warfarin TECHNIQUE: Axial computed tomography images of the head/brain without intravenous contrast. COMPARISON: Study dated on 02/04/22 FINDINGS: BRAIN: There is diffuse cerebral and cerebellar atrophy, evidenced by prominence of the cortical sulci and ventricular system, compatible with age-related changes. Mild stable hypodensity in periventricular white matter suggestive of chronic small vessel ischemic changes. No evidence of acute hemorrhage. No mass lesion. No CT evidence for acute territorial infarct. No midline shift or extra-axial collections. Calcification along the falx. VENTRICLES: No hydrocephalus. ORBITS: The orbits are unremarkable. SINUSES AND MASTOIDS: The paranasal sinuses and mastoid air cells are clear. BONES: No fracture. SOFT TISSUES: Unremarkable. IMPRESSION: 1. No acute intracranial findings. 2. Stable chronic ischemic changes. /[place]
[2025-05-30] MEDS: 0.9%NACL 1000ML 1,000 ML IV SCH (14:30)
--- NOTE | 2025-05-30 15:59 | NUR ---
DCP: HOME Pt currently lives with sps in their home. Pt has a wheelchair, walker, and cane at home that he uses to ambulate. Pt does not have any home health or provider services at this time. Pt states that he is able to complete ADLs independently. PCP is Dr. Young and uses [facility] in [place] for any RX needs. At [place] pt will want to go home and family can assist with transportation. Addendum: 05/30/25 at 1602 by FAISAL FRANKLIN SS Amended: Links added.
[2025-05-30 21:04] LABS: APPEARANCE,URINE CLOUDY (CLEAR); GLUCOSE, URINE (UA) NEGATIVE (NEGATIVE); LEUKOCYTE ESTERASE ,URINE 500 Leu/uL (NEGATIVE); NITRATE,URINE 1+ (NEGATIVE); OCCULT BLOOD,URINE SMALL (NEGATIVE)
[2025-05-30 21:07] LABS: ADD UA MICROSCOPIC YES
[2025-05-30 21:09] LABS: WBC CLUMP FEW /HPF (0-1)
[2025-05-30] MEDS ORDERED: VITA1CAP PO (22:31)
[2025-05-30] MEDS ORDERED: METF-446 PO (22:31)
[2025-05-30] MEDS ORDERED: SACU1TAB PO (22:31)
[2025-05-30 22:40] VITALS: BP 96/63; PULSE 82; RESP 20; TEMP 98.3
[2025-05-30 23:30] VITALS: O2SAT 96
[2025-05-31 04:00] VITALS: BP 106/57; PULSE 80; RESP 20; TEMP 98.2
[2025-05-31 08:00] VITALS: BP 96/52; PULSE 89; RESP 18; TEMP 98.9; O2SAT 94
--- NOTE | 2025-05-31 08:36 | NUR ---
PATIENT DISCHARGED. IV TAKEN OUT WITH CATHETER INTACT. EDUCATION GIVEN TO PATIENT WELL FOLLOW UP APPOINTMENT. PATIENT CURRENTLY WAITING FOR A RIDE.
--- NOTE | 2025-05-31 09:29 | HP ---
ADMISSION HISTORY AND PHYSICAL ADMITTING DIAGNOSIS: Hypotension. HISTORY OF PRESENT ILLNESS: An 85-year-old man with heart disease, hypertension, AFib, biventricular AICD device, and bladder cancer. He has been on metoprolol mg b.i.d. Instead, he has just been taking 100 mg all at once. He came in the ER basically hypotensive after the metoprolol with a blood pressure of 80 systolic. He is seen, examined and admitted for the same. PAST MEDICAL HISTORY: Includes AFib, hypertension, congestive heart failure, bladder cancer, anemia, and coagulopathy. PAST SURGICAL HISTORY: He has had multiple cystoscopies. He has had defibrillator, heart cath, pacemaker, and AICD device. MEDICATIONS: Include warfarin, metoprolol, temazepam, metformin, and Lasix. ALLERGIES: NIACIN. FAMILY HISTORY: Negative for heart disease. SOCIAL HISTORY: He is and lives with his . He does have home health that looks after him. REVIEW OF SYSTEMS: HEENT: He has a positive bruise over his eyebrow, which he said is from a previous fall. Negative for blurred vision. CARDIOVASCULAR: No chest pain, palpitations, PND. Recurrent syncope. PULMONARY: cough. GASTROINTESTINAL: bowel sounds. GENITOURINARY: No hematuria or dysuria. NEUROLOGIC: Negative for seizures, stroke, or migraine. PHYSICAL EXAMINATION: GENERAL: Elderly, very alert patient. VITAL SIGNS: Blood pressure 81/41, pulse 80, respirations 20. HEENT: Benign. CHEST: Clear. HEART: Irregular. Normal S1, S2. No murmur, rub, or gallop. ABDOMEN: Soft. EXTREMITIES: No edema. NEUROLOGIC: Intact. LABORATORY DATA: CBC with WBC 7.7, hemoglobin 9, platelets 291,000. Chemistry is unremarkable except for potassium of 5.4. IMPRESSION: Hypotension due to over medication on the patient's part, AFib with RVR, biventricular pacemaker, bladder cancer, diabetes. Other problems as listed. PLAN: Admit to medical floor. CBC, IV fluids. Went over his medications in detail. I will get home health to emphasize this. We will have him follow up with [facility] morning. Further recommendations to follow. TID: [id number] RECEIPT: [id number]
== END 2025-05-31 10:15 | disposition home or self-care (01) ==
LOC: EDH 11:26 → INTOOBSV 14:07 → UNDOADMOB 14:07 → EDHIP 14:07 → 4AH 22:40 → EDHIP 05-31 08:00
PROVIDERS: ADMIT Internal Medicine Hematology & Oncology; ATTEND Internal Medicine Hematology & Oncology
DX: I95.9 Hypotension, unspecified (principal); A41.9 Sepsis, unspecified organism; I48.20 Chronic atrial fibrillation, unspecified; I13.0 Hypertensive heart and chronic kidney disease with heart failure and stage 1 through stage 4 chronic kidney disease, or unspecified chronic kidney disease; E11.22 Type 2 diabetes mellitus with diabetic chronic kidney disease; N18.9 Chronic kidney disease, unspecified; I50.9 Heart failure, unspecified; R29.6 Repeated falls; N17.9 Acute kidney failure, unspecified; E86.0 Dehydration; I25.10 Atherosclerotic heart disease of native coronary artery without angina pectoris; Z95.810 Presence of automatic (implantable) cardiac defibrillator; Z85.51 Personal history of malignant neoplasm of bladder; Z88.8 Allergy status to other drugs, medicaments and biological substances; Z79.84 Long term (current) use of oral hypoglycemic drugs; Z79.899 Other long term (current) drug therapy
CPT/HCPCS: 96361 ×2; 96365; 82550; 84484; 80048; 85025; 87040 ×2; 87086 ×2; 83605 ×2; 81001; 36415; 71045; 70450; 99291; 93005; 87186; J7030; J0696; G0378 ×2; 96374; 99285

== ENCOUNTER 2025-10-15 06:50 | Day surgery (SDC) | payer MEDICARE ==
[2025-10-11 11:45] LABS: IMMATURE GRANULOCYTE ABSOLUTE 0.02 K/uL (0-1); NUCLEATED RED BLOOD CELLS 0.0 % (0.0-0.19); PLATELET COUNT (AUTO) 221 K/uL (130-400); RED BLOOD CELL COUNT(AUTO) 3.03 MIL/uL (4.50-6.20); RED CELL DISTRIBUTION WIDTH 14.9 % (11.0-15.5); WHITE BLOOD COUNT (AUTO) 5.2 K/uL (4.8-10.8)
[2025-10-11 11:46] VITALS: BP 90/42; PULSE 80; RESP 17; TEMP 97.2
[2025-10-11 11:48] LABS: CREATININE 2.7 mg/dL (0.5-1.3); GLOMERULAR FILTR. RATE CALC 22.0 mL/min (>90); GLUCOSE,RANDOM 138.0 mg/dL (70-105); SODIUM SERUM 139.0 mmol/L (136-145); UREA NITROGEN, BLOOD 66.0 mg/dL (7-18)
[2025-10-11 11:52] LABS: INR 1.24 (0.85-1.15)
--- NOTE | 2025-10-11 14:10 | EKG ---
[facility] Test Date: 2025-10-11 Test Time: 11:33:53 Pat Name: ANDREINA NUNEZ Department: [facility] Room: Gender: M Pulmonology Physician: [id number] : 1940 Requested By: Isaias ELISE Order Number: [id number] Reading MD: Willie Cevallos Measurements Intervals [place] Rate: 80 P: 0 [place]: 176 QRS: 135 QRSD: 154 T: 36 QT: 444 QTc: 513 Interpretive Statements Ventricular-paced rhythm Compared to ECG 05/30/2025 11:54:01 Atrial fibrillation no longer present Intraventricular conduction delay no longer present Early repolarization no longer present Electronically Signed On 10-12-2025 08:51:20 [employer] by Willie Cevallos Please click the below link to view image of tracing.
--- NOTE | 2025-10-12 09:17 | NUR ---
RE: LABS REPORTED PT/INR , BMP/ CBC TO DR ELISE. RECEIVED ORDERS TO REPEAT BMP IN AM OF PROCEDURE.
[~2025-10-15] VITALS: Ht 193 cm; Wt 92.1 kg
[2025-10-15 07:30] VITALS: BP 94/44; PULSE 81; RESP 18; TEMP 97.2
[2025-10-15 08:02] LABS: CREATININE 3.1 mg/dL (0.5-1.3); GLOMERULAR FILTR. RATE CALC 19.0 mL/min (>90); GLUCOSE,RANDOM 103.0 mg/dL (70-105); SODIUM SERUM 140.0 mmol/L (136-145); UREA NITROGEN, BLOOD 65.0 mg/dL (7-18)
[2025-10-15] MEDS: 0.9%NACL 1000ML 1,000 ML IV SCH (09:20)
[2025-10-15] MEDS ORDERED: SODIUM BICARB 50MEQ 50ML VIAL 50 ML ONE (09:49)
[2025-10-15] MEDS ORDERED: LIDOCAINE HCL 1% MDV 50ML VIAL ONE (09:49)
[2025-10-15] MEDS ORDERED: MIDAZOLAM HCL 1 MG/ML 2ML VIAL ONE ×6 (10:09→11:06)
[2025-10-15] MEDS ORDERED: DEXTROSE 50%-WATER 50 ML DISP.SYRIN IV PRN (12:00)
[2025-10-15 12:10] VITALS: BP 114/51; PULSE 80; RESP 14; TEMP 97
[2025-10-15 12:25] VITALS: BP 115/57; PULSE 80; RESP 15
[2025-10-15 12:40] VITALS: BP 110/67; PULSE 78; RESP 12
[2025-10-15 12:55] VITALS: BP 104/70; PULSE 80; RESP 13
[2025-10-15 13:25] VITALS: BP 111/54; PULSE 80; RESP 14
--- NOTE | 2025-10-15 13:50 | NUR ---
AICD Bi V site clean, dry and intact. No sign of bleeding, bruising or hematoma. Instructed Patient and Family of precautions and expectations until discharge. All voiced understanding. Ice packs applied for 2 hours. Full and complete discharge instructions given to Patient and Family both verbally and in writing. Tolerated fluids and ate 100% of Lunch. PIV removed with catheter tip intact. W/C to POV with Family to home.
== END 2025-10-15 13:45 | disposition home or self-care (01) ==
LOC: DAH 06:50
PROVIDERS: ATTEND Internal Medicine Cardiovascular Disease
DX: Z45.02 Encounter for adjustment and management of automatic implantable cardiac defibrillator (principal); I11.0 Hypertensive heart disease with heart failure; I50.22 Chronic systolic (congestive) heart failure; I48.20 Chronic atrial fibrillation, unspecified; I42.8 Other cardiomyopathies; I25.10 Atherosclerotic heart disease of native coronary artery without angina pectoris; Z86.2 Personal history of diseases of the blood and blood-forming organs and certain disorders involving the immune mechanism; Z79.01 Long term (current) use of anticoagulants; Z88.8 Allergy status to other drugs, medicaments and biological substances; Z79.899 Other long term (current) drug therapy
CPT/HCPCS: 80048 ×2; 85025; 85610; 85730; 36415 ×2; 93005; 33264; 82948; 99156; 99157 ×5; C1882; J3010 ×3; J0690; J0665; J3490 ×2; J2250 ×6; A4215; A4222; A4221; A4663; A4216; A4606; A4223 ×3